=== PATIENT | male | born 1970 | race Two or more races ===

== ENCOUNTER 2021-08-06 04:35 | Day surgery (SDC) | payer BC, OTHER ==
[2021-08-04 16:34] VITALS: BMI 25.2
[2021-08-06 11:53] VITALS: TEMP 97.7
[2021-08-06 12:44] VITALS: BP 113/70; PULSE 59
== END 2021-08-06 13:05 | disposition home or self-care (01) ==
LOC: JASU-ENDO 04:35
PROVIDERS: ATTEND Internal Medicine Gastroenterology
PROC: 0DBL8ZX Excision of Transverse Colon, Via Natural or Artificial Opening Endoscopic, Diagnostic (ICD-10-PCS; 2021-08-06)
PROC: 0DBH8ZX Excision of Cecum, Via Natural or Artificial Opening Endoscopic, Diagnostic (ICD-10-PCS; principal; 2021-08-06 11:24)
DX: Z12.11 Encounter for screening for malignant neoplasm of colon (principal); D12.0 Benign neoplasm of cecum; D12.3 Benign neoplasm of transverse colon; K64.8 Other hemorrhoids; K62.89 Other specified diseases of anus and rectum
CPT/HCPCS: 88305-TC